=== PATIENT | male | born 1960 | race Caucasian/White ===

== ENCOUNTER 2018-09-17 18:21 | Emergency (ER) | payer BC, SELFPAY ==
[2018-09-17 18:28] VITALS: BP 178/96; PULSE 109; RESP 15; TEMP 37.1; O2SAT 96; BMI 32.7
--- NOTE | 2018-09-17 18:30 | ED.NAVMDI ---
HPI - Nausea/Vomiting/Diarrhea General Chief complaint: Nausea/Vomiting/Diarrhea Stated complaint: VOMITTING BLOOD Time Seen by Provider: 09/17/18 18:26 Source: patient Mode of arrival: ambulatory Limitations: no limitations History of Present Illness HPI Narrative: Patient is a 58-year-old male here for evaluation of nausea and vomiting. States that he has vomited every hour for the past 20 hr. No diarrhea. Some chills but no defined fevers. Has had some recent travel but no antibiotic use. Does have some epigastric abdominal pain. He states that recently during his vomiting episodes he has seen some blood streaked areas. No shortness of breath. Has not tried anything for prior to arrival. Related Data Previous Rx's Medication Instructions Recorded ondansetron 4 mg PO Q6-8H PRN #14 tab 09/17/18 Allergies Allergy/AdvReac Type Severity Reaction Status Date / Time No Known Drug Allergies Allergy Verified 09/17/18 18:28 Review of Systems Constitutional Reports chills and Denies fever(s) Cardiovascular Denies chest pain and Denies dyspnea Respiratory Denies cough and Denies dyspnea Gastrointestinal Gastrointestinal: Reports abdominal pain, Denies change in bowel habits, Denies change in stool character, Reports dyspepsia, Denies diarrhea, Reports nausea and Reports vomiting Genitourinary Denies dysuria Musculoskeletal Reports myalgias and Denies arthralgias Integumentary/Breasts Denies rash Hematologic/Lymphatic Denies easy bleeding and Denies easy bruising PFSH Medical History Hypertension (Acute) Surgical History No pertinent past surgical history (Acute) Social History Smoking Status: Never smoker Exam Initial Vital Signs Initial Vital Signs: Vital Signs Temperature 98.7 F 09/17/18 18:28 Pulse Rate 109 H 09/17/18 18:28 Respiratory Rate 15 09/17/18 18:28 Blood Pressure 178/96 H 09/17/18 18:28 Pulse Oximetry 96 09/17/18 18:28 Const General: cooperative, comfortable, well developed, well groomed and No acute distress Orientation: alert, awake and oriented x3 HENMT Head: normal to inspection and normocephalic Resp Effort & Inspection: normal respiratory effort Auscultation: clear to auscultation bilaterally Cardio Rate: tachycardic Rhythm: regular rhythm Pulses: radial pulses present GI Inspection: non-distended Palpation: soft, No firm and No tender Skin Lesions: no lesions Rashes: no rashes Neuro General: alert, awake and oriented x3 Extrem General: normal to inspection and capillary refill normal Psych Appearance: grossly normal and well kempt Course Orders Ordered: ED Orders 09/17/18 18:45 Complete Blood Count AUTO DIFF Stat Comprehensive Metabolic Panel Stat Lipase Stat Partial Thromboplastin Time Stat Prothrombin Time INR Stat Type and Screen Stat 09/17/18 18:51 XR chest 1V Stat Discontinued Medications Acetaminophen (Tylenol) 650 mg PO NOW ONE Stop: 09/17/18 20:16 Last Admin: 09/17/18 21:22 Dose: 650 mg Al Hydrox/Mg Hydrox/Simethicone 20 ml/ Lidocaine HCl 15 ml 0 ml PO NOW ONE Stop: 09/17/18 20:35 Last Admin: 09/17/18 20:41 Dose: 35 ml Pantoprazole Sodium 80 mg/ (Sodium Chloride) 100 mls @ 10 mls/hr IV NOW ONE Stop: 09/18/18 04:47 Last Infusion: 09/17/18 20:32 Dose: 0 mls/hr Admin: 09/17/18 19:10 Dose: 10 mls/hr Sodium Chloride (Normal Saline 0.9%) 1,000 mls @ 1,000 mls/hr IV BOLUS ONE Stop: 09/17/18 19:47 Last Infusion: 09/17/18 20:32 Dose: 0 mls/hr Admin: 09/17/18 19:03 Dose: 1,000 mls/hr Ondansetron HCl (Zofran) 4 mg IV NOW ONE Stop: 09/17/18 18:49 Last Admin: 09/17/18 19:04 Dose: 4 mg Ondansetron HCl (Zofran Odt Prepack) 1 bottle MISC SEEINSTR ONE Stop: 09/17/18 21:42 Last Admin: 09/17/18 21:44 Dose: 1 bottle Vital Signs - 8 hr 09/17/18 18:28 09/17/18 20:12 09/17/18 21:05 Temperature 98.7 F Pulse Rate 109 H 84 90 Respiratory Rate 15 16 Blood Pressure 178/96 H Blood Pressure [Left Arm] 177/92 H 160/85 H Pulse Oximetry 96 92 95 09/17/18 21:15 09/17/18 21:42 Temperature Pulse Rate 91 H 84 Respiratory Rate 15 16 Blood Pressure Blood Pressure [Left Arm] 160/85 H 149/80 H Pulse Oximetry 96 96 MDM - Nausea/Vomiting/Diarrhea Lab Data Attestation: I reviewed the patient's lab results. Result diagrams: 09/17/18 18:45 09/17/18 18:45 Lab Results 09/17/18 09/17/18 09/17/18 Range/Units 18:45 18:45 18:45 WBC 12.3 H (4.5-11.0) X10^3/uL RBC 5.13 (4.5-5.9) X10^6/uL Hgb 16.7 (13.5-17.5) g/dL Hct 48.3 (41-53) % MCV 94.1 (80-100) fL MCH 32.5 (26-34) PG MCHC 34.5 (30-36) % RDW 12.7 (11.6-14.8) % Plt Count 234 (150-400) X10^3/uL Neut % (Auto) 93.0 H (50-75) % Lymph % (Auto) 3.6 L (25-40) % [place] % (Auto) 3.2 (3-14) % Eos % (Auto) 0.0 L (2-4) % Baso % (Auto) 0.2 (0-2) % Neut # (Auto) 81534 H (0671-7874) /uL PT (10.1-12.7) SECONDS INR (0.9-1.3) APTT 32 (26.4-36.2) SECONDS Sodium 144 (137-145) mmol/L Potassium 3.6 (3.4-5.1) mmol/L Chloride 101 (98-107) mmol/L Carbon Dioxide 26 (22-32) mmol/L BUN 18 (9-20) mg/dL Creatinine 0.80 (0.66-1.25) mg/dL Estimated GFR > 60.0 (>60) mL/min BUN/Creatinine Ratio 22.5 H (6-22) Glucose 162 H (70-100) mg/dL Calcium 9.7 (8.4-10.2) mg/dL Total Bilirubin 0.6 (0.2-1.3) mg/dL AST 28 (17-59) IU/L ALT 54 (21-72) IU/L Alkaline Phosphatase 70 (38-126) U/L Total Protein 7.9 (6.3-8.2) g/dL Albumin 4.9 (3.5-5.0) g/dL Globulin 3.0 (1.7-4.1) g/dL Albumin/Globulin Ratio 1.6 (1.0-2.8) Lipase 20 L (23-300) U/L Blood Type Antibody Screen 09/17/18 09/17/18 Range/Units 18:45 18:45 WBC (4.5-11.0) X10^3/uL RBC (4.5-5.9) X10^6/uL Hgb (13.5-17.5) g/dL Hct (41-53) % MCV (80-100) fL MCH (26-34) PG MCHC (30-36) % RDW (11.6-14.8) % Plt Count (150-400) X10^3/uL Neut % (Auto) (50-75) % Lymph % (Auto) (25-40) % [place] % (Auto) (3-14) % Eos % (Auto) (2-4) % Baso % (Auto) (0-2) % Neut # (Auto) (7066-6255) /uL PT 12.2 (10.1-12.7) SECONDS INR 1.1 (0.9-1.3) APTT (26.4-36.2) SECONDS Sodium (137-145) mmol/L Potassium (3.4-5.1) mmol/L Chloride (98-107) mmol/L Carbon Dioxide (22-32) mmol/L BUN (9-20) mg/dL Creatinine (0.66-1.25) mg/dL Estimated GFR (>60) mL/min BUN/Creatinine Ratio (6-22) Glucose (70-100) mg/dL Calcium (8.4-10.2) mg/dL Total Bilirubin (0.2-1.3) mg/dL AST (17-59) IU/L ALT (21-72) IU/L Alkaline Phosphatase (38-126) U/L Total Protein (6.3-8.2) g/dL Albumin (3.5-5.0) g/dL Globulin (1.7-4.1) g/dL Albumin/Globulin Ratio (1.0-2.8) Lipase (23-300) U/L Blood Type O Positive Antibody Screen Negative Imaging Data Chest x-ray: Radiologist's impression: [address] [address] XRay Report Signed Patient: LISA MCKEE MMR#: [id number] : 9Acct:[id number] Age/Sex: 58 / MDate of Service: 09/17/18 Loc: ED Accession Number: [id number] Procedure: XR chest 1V Ordering Provider: Bj Duff D.O. PROCEDURE: XR CHEST 1V INDICATIONS: vomiting blood TECHNIQUE: One view of the chest was acquired. COMPARISON: None. FINDINGS: Surgical changes and devices: None. Lungs and pleura: No pleural effusions or pneumothorax. Lungs are clear. Mediastinum: Mediastinal contours appear normal. Heart size is normal. Bones and chest wall: No suspicious bony lesions. Overlying soft tissues appear unremarkable. IMPRESSION: No acute cardiopulmonary disease. Dictated by: Minal Johnson M.D. on 09/17/2018 at 19:29 MDM Narrative Medical decision making narrative: Patient reported improvement after fluids here in the emergency department. Patient has a benign abdominal exam. His chest x-ray shows no signs of perforation or free air under the diaphragm. Patient is not anemic. I do suspect that his blood-streaked vomit secondary to Elaine-Galo tears. He was given Protonix here in the ER. First attempt at oral fluid challenge unsuccessful. He was given a GI cocktail which he states improved his symptoms tremendously. He was able to tolerate oral intake afterwards. Was given a Tylenol for headache. Will hold on further workup for now. Will send home with a prescription for Zofran. We also discussed the importance of taking a reflux medications such as Zantac. He was given return precautions. He expressed understanding and agreement with plan. Discharge Plan Departure Patient Disposition: Home Clinical Impression: Vomiting Discharge Date/Time: 09/17/18 21:47 Interventions: ED Discharge Assessment Last Done: 09/17/18 21:46 Instructions: DI for Vomiting -- Adult Activity Restrictions/Additional Instructions: Recommend that you increase her fluid intake. Take the nausea medication as directed. I do recommend that you purchase a medications such as Zantac which you can buy [id number] and start taking it on a daily basis for the next 7-14 days. Contact your primary care doctor for follow-up. Return to the emergency department for any new or worsening symptoms Prescriptions: New ondansetron 4 mg tablet,disintegrating 4 mg PO Q6-8H PRN (Reason: nausea and vomiting) Qty: 14 RF: 0
--- NOTE | 2018-09-17 18:51 | DI.RAD.S_ITS ---
PROCEDURE: XR CHEST 1V INDICATIONS: vomiting blood TECHNIQUE: One view of the chest was acquired. COMPARISON: None. FINDINGS: Surgical changes and devices: None. Lungs and pleura: No pleural effusions or pneumothorax. Lungs are clear. Mediastinum: Mediastinal contours appear normal. Heart size is normal. Bones and chest wall: No suspicious bony lesions. Overlying soft tissues appear unremarkable. IMPRESSION: No acute cardiopulmonary disease. Dictated by: Minal Johnson M.D. on 09/17/2018 at 19:29 Approved by: Minal Johnson M.D. on 09/17/2018 at 19:29
[2018-09-17 19:01] LABS: Add Manual Diff / Slide Review NO; Basophils Percent Auto 0.2 % (0-2); Hematocrit 48.3 % (41-53); Hemoglobin 16.7 g/dL (13.5-17.5); Lymphocytes Percent Auto 3.6 % (25-40); Mean Corpuscular HGB Conc 34.5 % (30-36); Mean Corpuscular Hemoglobin 32.5 PG (26-34); Mean Corpuscular Volume 94.1 fL (80-100); Monocytes Percent Auto 3.2 % (3-14); Neutrophils Absolute Auto 11400 /uL (1500-7000); Platelet Count 234 X10^3/uL (150-400); Red Blood Cell Count 5.13 X10^6/uL (4.5-5.9); Red Cell Distribution Width 12.7 % (11.6-14.8); White Blood Cell Count 12.3 X10^3/uL (4.5-11.0)
[2018-09-17] MEDS: SODIUM CHLORIDE 0.9% 1,000 ML 1000 ML IV (19:03)
[2018-09-17] MEDS: ONDANSETRON 4 MG/2 ML INJ IV (19:04)
[2018-09-17 19:07] LABS: PTT Partial Thromboplastin Tim 32 SECONDS (26.4-36.2)
[2018-09-17] MEDS: PANTOPRAZOLE 80 MG in SODIUM CHLORIDE 0.9% 100 ML 10 ML IV (19:10)
[2018-09-17 19:12] LABS: INR 1.1 (0.9-1.3); Prothrombin Time 12.2 SECONDS (10.1-12.7)
[2018-09-17 19:13] LABS: Alanine Aminotransferase 54 IU/L (21-72); Albumin 4.9 g/dL (3.5-5.0); Albumin Globulin Ratio 1.6 (1.0-2.8); Alkaline Phosphatase 70 U/L (38-126); Aspartate Aminotransferase 28 IU/L (17-59); BUN Creatinine Ratio 22.5 (6-22); Bilirubin Total 0.6 mg/dL (0.2-1.3); Blood Urea Nitrogen 18 mg/dL (9-20); Calcium 9.7 mg/dL (8.4-10.2); Carbon Dioxide 26 mmol/L (22-32); Chloride 101 mmol/L (98-107); Estimated Glomerular Filt Rate > 60.0 mL/min (>60); Glucose 162 mg/dL (70-100); HEMOLYSIS < 15 (0-50); Lipase 20 U/L (23-300); Potassium 3.6 mmol/L (3.4-5.1); Sodium 144 mmol/L (137-145); Total Protein 7.9 g/dL (6.3-8.2)
[2018-09-17 20:12] VITALS: BP 177/92; PULSE 84; RESP 16; O2SAT 92
[2018-09-17] MEDS: MAG HYDROX/ALUMINUM/SIMETH SUS 20 ML, LIDOCAINE VISCOUS 2% 15 ML PO (20:41)
[2018-09-17 21:05] VITALS: BP 160/85; PULSE 90; O2SAT 95
[2018-09-17 21:15] VITALS: BP 160/85; PULSE 91; RESP 15; O2SAT 96
[2018-09-17] MEDS: ACETAMINOPHEN 325 MG TABLET 650 MG PO (21:22)
[2018-09-17 21:42] VITALS: BP 149/80; PULSE 84; RESP 16; O2SAT 96
[2018-09-17] MEDS: ONDANSETRON 4 MG ODT PREPACK 1 BOTTLE MISC (21:44)
== END 2018-09-17 21:47 | disposition home or self-care (01) ==
PROVIDERS: Emergency Provider Emergency Medicine; PCP Internal Medicine
DX: R11.10 Vomiting, unspecified (principal)
CPT/HCPCS: 36591; 71045; 80053; 83690; 85025; 85610; 85730; 86850; 86900; 86901; 96365; 96366; 96375; 99283; 99284; C9113; J2405

== ENCOUNTER → 2019-10-22 14:18 | Outpatient (CLI) | payer BC, SELFPAY ==
[2019-10-22 15:01] LABS: Alanine Aminotransferase 63 IU/L (<50); Albumin 4.4 g/dL (3.5-5.0); Albumin Globulin Ratio 1.8 (1.0-2.8); Alkaline Phosphatase 69 U/L (38-126); Aspartate Aminotransferase 35 IU/L (17-59); BUN Creatinine Ratio 24.4 (6-22); Bilirubin Total 0.4 mg/dL (0.2-1.3); Blood Urea Nitrogen 22 mg/dL (9-20); Calcium 10.3 mg/dL (8.4-10.2); Carbon Dioxide 27 mmol/L (22-32); Chloride 107 mmol/L (98-107); Cholesterol 232 mg/dL (140-199); Estimated Glomerular Filt Rate > 60.0 mL/min (>60); Globulin 2.5 g/dL (1.7-4.1); Glucose 90 mg/dL (80-110); HDL Cholesterol 45 mg/dL (40-60); HEMOLYSIS < 15 (0-50); LDL Cholesterol Calculated 166 mg/dL (<100); Potassium 4.3 mmol/L (3.4-5.1); Sodium 141 mmol/L (137-145); Total Protein 6.9 g/dL (6.3-8.2); Triglycerides 103 mg/dL (35-150)
[2019-10-26 14:29] LABS: PSA, Total 0.4 ng/mL (< 4.1)
== END ==
PROVIDERS: PCP Internal Medicine; Visit Provider Internal Medicine
DX: N40.1 Benign prostatic hyperplasia with lower urinary tract symptoms (principal); E78.2 Mixed hyperlipidemia; I10 Essential (primary) hypertension
CPT/HCPCS: 36415; 80053; 80061; 84153; 84154

== ENCOUNTER → 2019-10-29 08:00 | Outpatient (CLI) | payer BC, SELFPAY ==
--- NOTE | 2019-10-29 09:33 | P.PCN_ITS ---
Cardiac Stress Test Report Referral & Results Date Patient Seen: 10/29/19 Time Patient Seen: 09:33 Requesting provider: Sonu Santos Indication: Abnormal ECG Rest ECG: Normal sinus rhythm at 78 with insignificant Q waves in lead III. Procedure Note: Max effort Jay protocol treadmill exercise tolerance test with good tolerance and total exercise time of 11:41 and Mets of 12.8. Patient denied any cardiac ischemic symptoms. Stress ECG sinus tach to 155 bpm (97% of predicted max HR) without any significant ST segment depressions or elevations. normal HR response; hypertensive BP response; no arrhythmias; no claudication. [employer] to review test. Alberto Maza PA-C Please note: Actual ECG tracings can be found in the PACS system.
== END ==
PROVIDERS: PCP Internal Medicine; Visit Provider Internal Medicine
DX: R94.31 Abnormal electrocardiogram [ECG] [EKG] (principal)
CPT/HCPCS: 93017

== ENCOUNTER 2020-09-13 19:34 | Emergency (ER) | payer BC, SELFPAY ==
[2020-09-13 19:38] VITALS: BP 140/90; PULSE 91; RESP 18; TEMP 36.8; O2SAT 96
[2020-09-13] MEDS: TET,DIPH,PERTUSS(ACELL),VAC/PF 0.5 ML SYRINGE IM (19:43)
[2020-09-13] MEDS: LIDO 1%/SOD BICARB 8.4% (10ML) 10 ML SYRINGE INJ (19:45)
[2020-09-13 21:01] VITALS: BP 145/90; PULSE 79; RESP 20; O2SAT 97
--- NOTE | 2020-09-14 01:38 | ED_ITS ---
HPI - Wound/Laceration General Chief Complaint: Wound/Laceration Stated Complaint: wound pinky finger left hand Time Seen by Provider: 09/13/20 19:35 Source: patient Mode of arrival: Ambulatory Limitations: no limitations History of Present Illness HPI narrative: 60M nonsmoker with history of HTN presents with hsi for evaluation of an accidental laceration to the volar surface of his left pinky. He has pain and bleeding, but denies numbness, tingling, or weakness. He was shucking oysters and accidentally cut himself. His tetanus will need to be updated. He is otherwise well and free of complaint Onset (ago): minute(s) Location: other Body four view annotation: 1. Place: home Patient tetanus UTD: No Context: accidental Associated symptoms: pain Treatments prior to arrival: bandage Related Data Previous Rx's Medication Instructions Recorded amlodipine 10 mg tablet 10 mg PO DAILY #90 tab 08/02/20 cephalexin [Keflex] 500 mg PO QID 7 Days #28 cap 09/13/20 Allergies Allergy/AdvReac Type Severity Reaction Status Date / Time No Known Drug Allergies Allergy Verified 08/02/20 13:26 Review of Systems Constitutional Constitutional: Denies chills, Denies fatigue, Denies fever(s), Denies frequent falls, Denies lethargy and Denies weakness Eyes Eyes: Denies change in vision, Denies eye discharge, Denies irritation and Denies loss of vision ENT Ears, Nose, Mouth, and Throat: Denies change in voice, Denies dizziness, Denies neck pain, Denies sore throat and Denies throat swelling Cardiovascular Cardiovascular: Denies chest pain, Denies irregular heart rhythm, Denies lightheadedness, Denies palpitations, Denies dyspnea, Denies dyspnea on exertion and Denies orthopnea Respiratory Respiratory: Denies cough, Denies dyspnea, Denies dyspnea on exertion and Denies wheezing Gastrointestinal Gastrointestinal: Denies abdominal pain, Denies change in bowel habits, Denies diarrhea, Denies nausea and Denies vomiting Musculoskeletal Musculoskeletal: Denies neck pain and Denies numbness Integumentary/Breasts Skin/Breast: Denies pruritus, Denies erythema, Denies rash and Reports wounds Neurologic Neurologic: Denies behavioral changes, Denies confusion, Denies dizziness, Denies frequent falls, Denies loss of vision, Denies numbness and Denies weakness Psychiatric Psychiatric: Denies anxiety, Denies behavioral changes, Denies confusion, Denies depression, Denies homicidal ideation and Denies suicidal ideation Endocrine Endocrine: Denies fatigue, Denies flushing and Denies palpitations Hematologic/Lymphatic Hematologic/Lymphatic: Denies easy bruising Allergic/Immunologic Allergic/Immunologic: Denies urticaria, Denies throat swelling and Denies wheezing Patient History Medical History GERD (gastroesophageal reflux disease) Hyperlipemia Hypertension Wears glasses Surgical History Anesthesia History of hernia surgery (~2003) No pertinent past surgical history Family History Father Alzheimer disease History of heart disease Hyperlipidemia Mental health problem COVID-19 Mother Stroke Social History Smoking Status: Never smoker Smoking Status: Never smoker alcohol intake frequency: 3 or more drinks per day Substance Use Type: does not use Exam Narrative Exam Narrative: GEN: AOx3 and in mild distress EYES: Pupils are equal, round, and reactive to light and accommodation. Extraoccular muscles are intact bilaterally. There is no subconjunctival hemorrhage or exudate. CHEST: Lungs are clear to auscultation bilaterally and free of wheezes, rales, or rhonchi. Heart rate is regular rhythm, there are no murmurs, clicks, rubs, or gallops. There is no chest wall tenderness. ABD: Abdomen is soft and nontender. There is no guarding or rebound. Bowel sounds are normal in all 4 quadrants. There is no mass or organomegaly. EXT: Full painless ROM of all extremities with no loss of sensation or strength. SKIN: 2.5 cm deep laceration on volar surface of left 5th finger. There is active, pulsatile bleeding. He has full range of motion and sensation. A Cristina drain is applied very briefly for use as a tourniquet and flexor tendon glide is visualized in a bloodless field. No foreign body noted Warm, pink, and dry. No erythema or rash Initial Vital Signs Initial Vital Signs: Vital Signs Temperature 98.2 F 09/13/20 19:38 Pulse Rate 91 H 09/13/20 19:38 Respiratory Rate 18 09/13/20 19:38 Blood Pressure 140/90 09/13/20 19:38 Pulse Oximetry 96 09/13/20 19:38 Procedures Laceration Repair Laceration 1: Site: hand Side (If applicable): left Size (cm): 2.5 Description: linear Depth: involves muscle layer Local Anesthetic: lidocaine 1% and bupivacaine 0.5% Amount of anesthesia used (mL): 4 Pre-repair: wound explored and irrigated extensively Skin layer closed with: nylon Size (cm): 4-0 Number of sutures: 5 Course Orders Ordered: Discontinued Medications Diphtheria/Tetanus/Acell Pertussis (Tet,Diph,Pertuss(Acell),Vac/Pf 0.5 Ml Syri nge) 0.5 ml IM .ONCE ONE Stop: 09/13/20 19:40 Last Admin: 09/13/20 19:43 Dose: 0.5 ml Documented by: SHADI Lidocaine/Sodium Bicarbonate (Lido 1%/Sod Bicarb 8.4% (10ml) 10 Ml Syringe) 10 ml INJ NOW ONE Stop: 09/13/20 19:40 Last Admin: 09/13/20 19:45 Dose: 1 ml Documented by: SHADI Vital Signs Vital signs: Vital Signs - 8 hr 09/13/20 19:38 09/13/20 21:01 Temperature 98.2 F Pulse Rate 91 H 79 Respiratory Rate 18 20 Blood Pressure 140/90 145/90 H Pulse Oximetry 96 97 Discharge Plan Departure Patient Disposition: Home Clinical Impression: Laceration Instructions: DI for Laceration Repair Activity Restrictions/Additional Instructions: *You have been diagnosed with [lip laceration are of left fifth finger] *What to do: *Take medications as directed * Please keep the wound clean and dry to the best of your ability. Please monitor for signs of infection such as redness to the skin or increasing pain. Have the sutures removed by your doctor in about 7 days. If you are unable to get into your doctor, we would be happy to remove the sutures in that same timeframe. *Return to ER if you should have any new, worsening or concerning symptoms, such as [increasing pain, redness, swelling, drainage or other bothersome symptoms] Prescriptions: New cephalexin [Keflex] 500 mg capsule 500 mg PO QID 7 Days Qty: 28 RF: 0 No Action amlodipine 10 mg tablet 10 mg PO DAILY Qty: 90 RF: 3 Referrals: Ori Hicks MD [Primary Care Provider] -
== END 2020-09-13 21:00 | disposition home or self-care (01) ==
PROVIDERS: Emergency Provider Emergency Medicine; PCP Family Medicine
DX: S61.217A Laceration without foreign body of left little finger without damage to nail, initial encounter (principal); W26.9XXA Contact with unspecified sharp object(s), initial encounter; I10 Essential (primary) hypertension; E78.5 Hyperlipidemia, unspecified; K21.9 Gastro-esophageal reflux disease without esophagitis; Z23 Encounter for immunization
CPT/HCPCS: 12001; 90471; 99283; 90715

== ENCOUNTER → 2021-01-10 09:04 | Outpatient (CLI) | payer BC, SELFPAY ==
[2021-01-10] MEDS: COVID-19 VACC #1, MRNA(MOD) 100 MCG/0.5 ML VIAL IM (09:14)
== END ==
PROVIDERS: PCP Family Medicine; Visit Provider Internal Medicine
DX: Z23 Encounter for immunization (principal)
CPT/HCPCS: 0011A; 91301

== ENCOUNTER → 2021-02-08 15:35 | Outpatient (CLI) | payer BC, SELFPAY ==
[2021-02-08] MEDS: COVID-19 VACC #2, MRNA(MOD) 100 MCG/0.5 ML VIAL IM (15:51)
== END ==
PROVIDERS: PCP Family Medicine; Visit Provider Internal Medicine
DX: Z23 Encounter for immunization (principal)
CPT/HCPCS: 0012A; 91301

== ENCOUNTER → 2022-01-01 08:42 | Outpatient (CLI) | payer BC, SELFPAY ==
[2022-01-01 10:02] LABS: Hemoglobin A1C% w Est Avg Glu 5.4 % (4.0-6.0)
[2022-01-01 10:08] LABS: Creatinine Urine Random 239.1 mg/dL
[2022-01-01 10:12] LABS: Alanine Aminotransferase 40 IU/L (<50); Albumin 4.4 g/dL (3.5-5.0); Albumin Globulin Ratio 1.8 (1.0-2.8); Alkaline Phosphatase 67 U/L (38-126); Aspartate Aminotransferase 27 IU/L (17-59); BUN Creatinine Ratio 18.7 (6-22); Bilirubin Total 0.6 mg/dL (0.2-1.3); Blood Urea Nitrogen 17 mg/dL (9-20); Calcium 9.6 mg/dL (8.4-10.2); Carbon Dioxide 25 mmol/L (22-32); Chloride 105 mmol/L (98-107); Cholesterol 253 mg/dL (140-199); Estimated Glomerular Filt Rate > 60.0 mL/min (>60); Globulin 2.4 g/dL (1.7-4.1); Glucose 110 mg/dL (80-110); HDL Cholesterol 60 mg/dL (40-60); HEMOLYSIS < 15 (0-50); LDL Cholesterol Calculated 157 mg/dL (<100); Potassium 4.4 mmol/L (3.4-5.1); Sodium 139 mmol/L (137-145); Total Protein 6.8 g/dL (6.3-8.2); Triglycerides 182 mg/dL (35-150)
[2022-01-01 10:13] LABS: Microalbumi Creatinin Ratio Ur 8.7 ug/mg CR (<30); Microalbumin Urine Random 2.1 mg/dL (0-1.6)
== END ==
PROVIDERS: PCP Family Medicine; Referring Provider Family Medicine; Visit Provider Family Medicine
DX: E78.5 Hyperlipidemia, unspecified (principal); I10 Essential (primary) hypertension
CPT/HCPCS: 36415; 80053; 80061; 82043; 82570; 83036

== ENCOUNTER 2022-09-30 22:30 | Emergency (ER) | payer BC, SELFPAY ==
[2022-09-30 22:38] VITALS: BP 221/136; PULSE 100; RESP 18; TEMP 36.3; O2SAT 97; BMI 33.0
--- NOTE | 2022-09-30 22:42 | DI.RAD.S_ITS ---
PROCEDURE: XR CHEST 1V INDICATIONS: chest pain TECHNIQUE: One view of the chest was acquired. COMPARISON: [facility], CR, XR CHEST 1V, 09/17/2018, 18:54. FINDINGS: Surgical changes and devices: None. Lungs and pleura: Lungs are clear. No pleural effusions or pneumothorax. Mediastinum: Mediastinal contours appear normal. Heart size is mildly enlarged. Bones and chest wall: No suspicious bony lesions. Overlying soft tissues appear unremarkable. IMPRESSION: No acute pulmonary process. Dictated by: Mitzi Smiley M.D. on 09/30/2022 at 23:51 Approved by: Mitzi Smiley M.D. on 09/30/2022 at 23:51
[2022-09-30 23:00] VITALS: PULSE 94; RESP 21; O2SAT 96
[2022-09-30 23:01] VITALS: BP 154/84; PULSE 95; RESP 19; O2SAT 96
[2022-09-30 23:10] LABS: Prothrombin Time 11.7 SECONDS (10.1-12.7)
[2022-09-30 23:13] LABS: Add Manual Diff / Slide Review NO; Basophils Absolute Auto 0 /uL (0-100); Basophils Percent Auto 0.5 % (0-2); Eosinophils Absolute Auto 100 /uL (0-450); Eosinophils Percent Auto 1.9 % (2-4); Hematocrit 41.9 % (41-53); Hemoglobin 14.3 g/dL (13.5-17.5); Lymphocytes Absolute Auto 1800 /uL (1100-4500); Lymphocytes Percent Auto 27.3 % (25-40); Mean Corpuscular HGB Conc 34.1 % (30-36); Mean Corpuscular Hemoglobin 32.6 PG (26-34); Mean Corpuscular Volume 95.6 fL (80-100); Monocytes Absolute Auto 800 /uL (0-900); Monocytes Percent Auto 12.5 % (3-14); Neutrophils Absolute Auto 3800 /uL (1500-7000); Neutrophils Percent Auto 57.8 % (50-75); PTT Partial Thromboplastin Tim 35 SECONDS (26-36); Platelet Count 229 X10^3/uL (150-400); Red Blood Cell Count 4.38 X10^6/uL (4.5-5.9); Red Cell Distribution Width 12.8 % (11.6-14.8); White Blood Cell Count 6.6 X10^3/uL (4.5-11.0)
[2022-09-30 23:14] LABS: HEMOLYSIS < 15 (0-50)
[2022-09-30 23:20] LABS: Alanine Aminotransferase 52 IU/L (<50); Albumin 4.3 g/dL (3.5-5.0); Albumin Globulin Ratio 1.4 (1.0-2.8); Alkaline Phosphatase 78 U/L (38-126); Aspartate Aminotransferase 32 IU/L (17-59); BUN Creatinine Ratio 34.8 (6-22); Bilirubin Total 0.5 mg/dL (0.2-1.3); Blood Urea Nitrogen 32 mg/dL (9-20); Calcium 9.2 mg/dL (8.4-10.2); Carbon Dioxide 24 mmol/L (22-32); Chloride 104 mmol/L (98-107); Creatine Kinase 124 U/L (55-170); Estimated Glomerular Filt Rate > 60 mL/min (>60); Glucose 114 mg/dL (80-110); Lipase 39 U/L (23-300); Magnesium 2.2 mg/dL (1.6-2.3); Sodium 139 mmol/L (137-145); Total Protein 7.3 g/dL (6.3-8.2)
[2022-09-30 23:30] VITALS: BP 150/86; PULSE 87; RESP 16; O2SAT 95
[2022-09-30 23:33] LABS: Troponin I < 0.012 ng/mL (0.01-0.034)
[2022-09-30 23:35] LABS: CKMB % Relative Index 0.8 % (1.5-5.0); Creatine Kinase MB 0.93 ng/mL (<2.37)
--- NOTE | 2022-09-30 23:42 | ED.CHESTPAIN ---
HPI - Chest Pain General Chief Complaint: Chest Pain Stated Complaint: High BP 204/120, Chest pain Time Seen by Provider: 09/30/22 22:42 Source: patient Mode of arrival: Ambulatory History of Present Illness HPI narrative: 62-year-old male nonsmoker with history of hypertension presents with his in the chief complaint of relatively vague in brief episodes of left-sided chest pain over the course of the past few days. He states that they are largely sharp and stabbing and last a minute or 2 and are absent of any obvious provocation, palliation or radiation. He denies associated symptoms such as dizziness, weakness or lightheadedness. He has no shortness of breath or cough. He denies nausea, vomiting or diarrhea and has no urinary complaints. He noticed it initially after shoveling vigorously in his driveway after the snow fell a few days ago but denies any symptoms while shoveling. He just noticed this pain in his left anterior chest. Additionally, he is noticed episodes of his blood pressure being elevated, at times over 200 but states his symptoms do not seem to necessarily correlate with elevated blood pressure. He denies any change in medications or diet. Denies recent trauma or injury, travel, history of clot or pain, swelling or redness in lower extremities Related Data Previous Rx's Medication Instructions Recorded lisinopril 20 mg tablet 20 mg PO DAILY #90 tabs 07/15/22 Allergies Allergy/AdvReac Type Severity Reaction Status Date / Time No Known Drug Allergies Allergy Verified 08/02/20 13:26 Review of Systems Review of Systems Narrative: GENERAL: Denies chills, fatigue, malaise, fever, sweats. HEENT: Denies sinus pain, ear pain, sore throat, difficulty swallowing, dizziness. RESPIRATORY: See HPI CARDIOVASCULAR: See HPI GASTROINTESTINAL: Denies nausea, vomiting, abdominal pain, diarrhea, constipation, melena. : Denies dysuria, frequency, incontinence, hematuria, urinary retention. MUSCULOSKELETAL: denies weakness, joint pain, or bony pain SKIN: Denies rash, skin lesions, or other NEUROLOGIC: Denies weakness, headache, numbness, change in speech, confusion, seizures, incoordination. PSYCHIATRIC: No concerning psychosocial issues. 12 point review of systems is negative except for those stated above Patient History Medical History GERD (gastroesophageal reflux disease) Hyperlipemia Hypertension Wears glasses Surgical History Anesthesia History of hernia surgery (~2003) No pertinent past surgical history Family History Father Alzheimer disease History of heart disease Hyperlipidemia Mental health problem COVID-19 Mother Stroke Social History Smoking Status: Never smoker Smoking Status: Never smoker alcohol intake frequency: 3 or more drinks per day Substance Use Type: does not use Exam Narrative Exam Narrative: GENERAL: [62] year old patient appears stated age. Well-developed patient, in mild distress. HEAD: Atraumatic. Normocephalic. EYES: Pupils equal round and reactive. Extraocular motions intact. No scleral icterus. No injection or drainage. ENT: Nose without bleeding, purulent drainage. Throat without erythema, tonsillar hypertrophy or exudate. Airway patent. NECK: Trachea midline. Non tender CARDIOVASCULAR: Regular rate and rhythm without murmurs, gallops, or rubs. RESPIRATORY: Clear to auscultation. Breath sounds equal bilaterally. No wheezes, rales, or rhonchi. GASTROINTESTINAL: Abdomen soft, non-tender, nondistended. EXTREMITIES: No edema or joint tenderness. BACK: Nontender without deformity or crepitance. No flank tenderness. NEURO: AOx3. SKIN: No rash or erythema of visible areas Initial Vital Signs Initial Vital Signs: Vital Signs Temperature 97.3 F L 09/30/22 22:38 Pulse Rate 100 H 09/30/22 22:38 Respiratory Rate 18 09/30/22 22:38 Blood Pressure 221/136 H 09/30/22 22:38 Pulse Oximetry 97 09/30/22 22:38 Oxygen Delivery Method 09/30/22 22:38 Scores HEART Score Heart Score history: Slightly Suspicious Heart Score EKG: Normal Heart Score Age: 45-64 years old Heart Score risk factors: 1-2 risk factors Heart Score troponin: < or = to normal limit Heart Score Total: 2 Course Orders Ordered: ED Orders 09/30/22 22:42 XR chest 1V Stat EKG-12 Lead Stat 09/30/22 22:55 Complete Blood Count AUTO DIFF Stat Comprehensive Metabolic Panel Stat Lipase Stat Magnesium Stat Partial Thromboplastin Time Stat Prothrombin Time INR Stat Troponin & CK Cardiac Panel Stat 09/30/22 23:40 COVID19 -Nasal RAPID/Pre-Proc Stat 10/01/22 00:49 EKG-12 Lead Stat 10/01/22 00:53 Troponin I Stat Vital Signs Vital signs: Vital Signs - 8 hr 09/30/22 22:38 09/30/22 23:00 09/30/22 23:01 Temperature 97.3 F L Pulse Rate 100 H 94 H 95 H Respiratory Rate 18 21 19 Blood Pressure 221/136 H Pulse Oximetry 97 96 96 Oxygen Delivery Method Room Air 09/30/22 23:01 09/30/22 23:30 09/30/22 23:30 Temperature Pulse Rate 87 Respiratory Rate 16 Blood Pressure 154/84 H 150/86 H Pulse Oximetry 95 Oxygen Delivery Method 09/30/22 23:44 09/30/22 23:44 10/01/22 00:00 Temperature Pulse Rate 88 Respiratory Rate 20 Blood Pressure 156/87 H 157/90 H Pulse Oximetry 96 Oxygen Delivery Method Room Air 10/01/22 00:00 10/01/22 00:30 10/01/22 00:30 Temperature Pulse Rate 85 84 Respiratory Rate 17 17 Blood Pressure 159/90 H Pulse Oximetry 94 96 Oxygen Delivery Method 10/01/22 00:47 10/01/22 00:47 Temperature Pulse Rate 81 Respiratory Rate 21 Blood Pressure 166/100 H Pulse Oximetry 96 Oxygen Delivery Method MDM - Chest Pain Lab Data Result diagrams: 09/30/22 22:55 09/30/22 22:55 Labs: Lab Results 09/30/22 09/30/22 09/30/22 Range/Units 22:55 22:55 22:55 WBC 6.6 (4.5-11.0) X10^3/uL RBC 4.38 L (4.5-5.9) X10^6/uL Hgb 14.3 (13.5-17.5) g/dL Hct 41.9 (41-53) % MCV 95.6 (80-100) fL MCH 32.6 (26-34) PG MCHC 34.1 (30-36) % RDW 12.8 (11.6-14.8) % Plt Count 229 (150-400) X10^3/uL Neut % (Auto) 57.8 (50-75) % Lymph % (Auto) 27.3 (25-40) % Dare % (Auto) 12.5 (3-14) % Eos % (Auto) 1.9 L (2-4) % Baso % (Auto) 0.5 (0-2) % Neut # (Auto) 3800 (8711-2612) /uL Lymph # (Auto) 1800 (2372-6935) /uL Dare # (Auto) 800 (0-900) /uL Eos # (Auto) 100 (0-450) /uL Baso # (Auto) 0 (0-100) /uL ESR (0-15) MM/HR PT 11.7 (10.1-12.7) SECONDS INR 1.0 (0.9-1.3) APTT 35 (26-36) SECONDS D-Dimer (<500) ng/ml Sodium 139 (137-145) mmol/L Potassium 4.0 (3.4-5.1) mmol/L Chloride 104 (98-107) mmol/L Carbon Dioxide 24 (22-32) mmol/L BUN 32 H (9-20) mg/dL Creatinine 0.92 (0.66-1.25) mg/dL Estimated GFR > 60 (>60) mL/min BUN/Creatinine Ratio 34.8 H (6-22) Glucose 114 H (80-110) mg/dL Calcium 9.2 (8.4-10.2) mg/dL Magnesium 2.2 (1.6-2.3) mg/dL Total Bilirubin 0.5 (0.2-1.3) mg/dL AST 32 (17-59) IU/L ALT 52 H (<50) IU/L Alkaline Phosphatase 78 (38-126) U/L Total Creatine Kinase 124 (55-170) U/L CK-MB (CK-2) 0.93 (<2.37) ng/mL CK-MB (CK-2) Rel Index 0.8 L (1.5-5.0) % Troponin I < 0.012 (0.01-0.034) ng/mL C-Reactive Protein (<1.0) mg/dL Total Protein 7.3 (6.3-8.2) g/dL Albumin 4.3 (3.5-5.0) g/dL Globulin 3.0 (1.7-4.1) g/dL Albumin/Globulin Ratio 1.4 (1.0-2.8) Lipase 39 (23-300) U/L 09/30/22 09/30/22 09/30/22 Range/Units 22:55 22:55 22:55 WBC (4.5-11.0) X10^3/uL RBC (4.5-5.9) X10^6/uL Hgb (13.5-17.5) g/dL Hct (41-53) % MCV (80-100) fL MCH (26-34) PG MCHC (30-36) % RDW (11.6-14.8) % Plt Count (150-400) X10^3/uL Neut % (Auto) (50-75) % Lymph % (Auto) (25-40) % Dare % (Auto) (3-14) % Eos % (Auto) (2-4) % Baso % (Auto) (0-2) % Neut # (Auto) (9338-6413) /uL Lymph # (Auto) (2490-5656) /uL Dare # (Auto) (0-900) /uL Eos # (Auto) (0-450) /uL Baso # (Auto) (0-100) /uL ESR 4 (0-15) MM/HR PT (10.1-12.7) SECONDS INR (0.9-1.3) APTT (26-36) SECONDS D-Dimer < 215 (<500) ng/ml Sodium (137-145) mmol/L Potassium (3.4-5.1) mmol/L Chloride (98-107) mmol/L Carbon Dioxide (22-32) mmol/L BUN (9-20) mg/dL Creatinine (0.66-1.25) mg/dL Estimated GFR (>60) mL/min BUN/Creatinine Ratio (6-22) Glucose (80-110) mg/dL Calcium (8.4-10.2) mg/dL Magnesium (1.6-2.3) mg/dL Total Bilirubin (0.2-1.3) mg/dL AST (17-59) IU/L ALT (<50) IU/L Alkaline Phosphatase (38-126) U/L Total Creatine Kinase (55-170) U/L CK-MB (CK-2) (<2.37) ng/mL CK-MB (CK-2) Rel Index (1.5-5.0) % Troponin I (0.01-0.034) ng/mL C-Reactive Protein < 0.5 (<1.0) mg/dL Total Protein (6.3-8.2) g/dL Albumin (3.5-5.0) g/dL Globulin (1.7-4.1) g/dL Albumin/Globulin Ratio (1.0-2.8) Lipase (23-300) U/L 10/01/22 Range/Units 00:53 WBC (4.5-11.0) X10^3/uL RBC (4.5-5.9) X10^6/uL Hgb (13.5-17.5) g/dL Hct (41-53) % MCV (80-100) fL MCH (26-34) PG MCHC (30-36) % RDW (11.6-14.8) % Plt Count (150-400) X10^3/uL Neut % (Auto) (50-75) % Lymph % (Auto) (25-40) % Dare % (Auto) (3-14) % Eos % (Auto) (2-4) % Baso % (Auto) (0-2) % Neut # (Auto) (1362-7176) /uL Lymph # (Auto) (3149-7954) /uL Dare # (Auto) (0-900) /uL Eos # (Auto) (0-450) /uL Baso # (Auto) (0-100) /uL ESR (0-15) MM/HR PT (10.1-12.7) SECONDS INR (0.9-1.3) APTT (26-36) SECONDS D-Dimer (<500) ng/ml Sodium (137-145) mmol/L Potassium (3.4-5.1) mmol/L Chloride (98-107) mmol/L Carbon Dioxide (22-32) mmol/L BUN (9-20) mg/dL Creatinine (0.66-1.25) mg/dL Estimated GFR (>60) mL/min BUN/Creatinine Ratio (6-22) Glucose (80-110) mg/dL Calcium (8.4-10.2) mg/dL Magnesium (1.6-2.3) mg/dL Total Bilirubin (0.2-1.3) mg/dL AST (17-59) IU/L ALT (<50) IU/L Alkaline Phosphatase (38-126) U/L Total Creatine Kinase (55-170) U/L CK-MB (CK-2) (<2.37) ng/mL CK-MB (CK-2) Rel Index (1.5-5.0) % Troponin I < 0.012 (0.01-0.034) ng/mL C-Reactive Protein (<1.0) mg/dL Total Protein (6.3-8.2) g/dL Albumin (3.5-5.0) g/dL Globulin (1.7-4.1) g/dL Albumin/Globulin Ratio (1.0-2.8) Lipase (23-300) U/L Imaging Data Chest x-ray: Radiologist's Impression: Close Chest X-Ray (Signed) Mitzi Smiley - 09/30/22 [place] [address] XRay Report Signed Patient: Kaushik Mcdonnell MR#: [id number] : 1960 Acct:[id number] Age/Sex: 62 / M Date of Service: 09/30/22 Loc: Accession Number: [id number] ?? Procedure: XR chest 1V Ordering Provider: Miguel Lopez D.O. PROCEDURE:? XR CHEST 1V ? INDICATIONS:? chest pain ? TECHNIQUE:? One view of the chest was acquired.? ? COMPARISON:? Located Within [facility], , XR CHEST 1V, 09/17/2018, 18:54. ? FINDINGS:? ? Surgical changes and devices:? None.? ? Lungs and pleura:? Lungs are clear.? No pleural effusions or pneumothorax.? ? Mediastinum:? Mediastinal contours appear normal.? Heart size is mildly enlarged. ? Bones and chest wall:? No suspicious bony lesions.? Overlying soft tissues appear unremarkable.? ? IMPRESSION:? No acute pulmonary process. ? ? Dictated by: Mitzi Smiley M.D. on 09/30/2022 at 23:51 ? ? Approved by: Mitzi Smiley M.D. on 09/30/2022 at 23:51 ? ECG Data Interpretation: [2248] EKG is normal sinus rhythm rate [99 ] and free of any signs of ischemia or ectopy. No ST segmental elevation or depression. No T wave inversions [0054] EKG is normal sinus rhythm rate [81 ] and free of any signs of ischemia or ectopy. No ST segmental elevation or depression. No T wave inversions MDM Narrative Medical decision making narrative: 62-year-old male nonsmoker with history of hypertension presents with brief episodes left-sided chest pain and elevated blood pressure in the absence of exertional symptoms or other cardiac equivalent Multiple etiologies for patient's symptoms considered including, but not limited to: [Cardiac ischemia, pulmonary embolism, musculoskeletal, pneumonia versus other] Prior Charts reviewed: Including prior emergency department visits from a few years ago Labs reviewed and interpreted by myself: No significant abnormalities noted. Most significantly 2 troponins by a few hours are negative. Additionally, D-dimer well below the cutoff to suggest pursuit of pulmonary embolism as diagnosis Imaging reviewed: No acute cardiopulmonary process Patient's symptoms improved over duration of stay with above-stated therapies. Findings and discharge diagnosis discussed with patient/family followed by verbalization of understanding Return precautions discussed with patient/family whom verbalize understanding of diagnosis and plan Discharge Plan Departure Patient Disposition: Home Clinical Impression: Chest pain, Hypertension Instructions: DI for Chest Pain Activity Restrictions/Additional Instructions: *You have been diagnosed with [atypical chest pain. As we discussed much of your history and physical exam as well as labs, EKGs and imaging are very reassuring. There is no evidence of heart attack, blood clot, inflammation around your heart, collapsed lung or other diagnosis which would require an immediate and specific intervention] *What to do: *Please start taking baby aspirin (81mg) daily and otherwise continue medications as previously prescribed *Please follow up with your primary care provider in 2-3 days, call for an appointment. Let them know you were seen in the Emergency Department and that we ask that you be seen in follow up. We will electronically transmit a record of today's note if your PCP is in our system *Return to Emergency Department if you should have any new, worsening or concerning symptoms, such as [fever greater than 101 F, shaking chills, worsening pain, persistent vomiting or other bothersome symptoms] Prescriptions: No Action lisinopril 20 mg tablet 20 mg PO DAILY Qty: 90 3RF Referrals: Ori Hicks MD [Primary Care Provider] - Visit Report Forms: Patient Portal/API
[2022-09-30 23:44] VITALS: BP 156/87; PULSE 88; RESP 20; O2SAT 96
[2022-10-01] VITALS (7 sets, daily range): BP systolic 150–171; BP diastolic 79–100; PULSE 74–85; RESP 17–21; O2SAT 94–96
[2022-10-01 02:06] LABS: C-Reactive Protein Quant < 0.5 mg/dL (<1.0)
[2022-10-01 02:07] LABS: D Dimer < 215 ng/ml (<500)
[2022-10-01 02:15] LABS: Erythrocyte Sedimentation Rate 4 MM/HR (0-15)
[2022-10-01 02:30] LABS: Troponin I < 0.012 ng/mL (0.01-0.034)
== END 2022-10-01 02:34 | disposition home or self-care (01) ==
PROVIDERS: Emergency Provider Emergency Medicine; PCP Family Medicine
DX: R07.9 Chest pain, unspecified (principal); I10 Essential (primary) hypertension
CPT/HCPCS: 36415; 71045; 80053; 82550; 82553; 83690; 83735; 84484; 85025; 85379; 85610; 85651; 85730; 86140; 93005; 99283; 99284

== ENCOUNTER → 2022-10-11 13:54 | Outpatient (CLI) | payer BC, SELFPAY ==
[2022-10-11 14:29] LABS: COVID19 -Nasal RAPID Negative (Negative)
[2022-10-11 15:27] LABS: Add Manual Diff / Slide Review NO; Basophils Absolute Auto 0 /uL (0-100); Basophils Percent Auto 0.4 % (0-2); Eosinophils Absolute Auto 100 /uL (0-450); Eosinophils Percent Auto 1.2 % (2-4); Hematocrit 42.5 % (41-53); Hemoglobin 14.6 g/dL (13.5-17.5); Lymphocytes Absolute Auto 1000 /uL (1100-4500); Mean Corpuscular HGB Conc 34.2 % (30-36); Mean Corpuscular Hemoglobin 32.7 PG (26-34); Mean Corpuscular Volume 95.5 fL (80-100); Monocytes Absolute Auto 600 /uL (0-900); Monocytes Percent Auto 10.5 % (3-14); Neutrophils Absolute Auto 3600 /uL (1500-7000); Neutrophils Percent Auto 68.9 % (50-75); Platelet Count 206 X10^3/uL (150-400); Red Blood Cell Count 4.45 X10^6/uL (4.5-5.9); Red Cell Distribution Width 12.6 % (11.6-14.8); White Blood Cell Count 5.3 X10^3/uL (4.5-11.0)
[2022-10-11 15:38] LABS: Cholesterol 226 mg/dL (140-199); HDL Cholesterol 58 mg/dL (40-60); LDL Cholesterol Calculated 130 mg/dL (<100); Triglycerides 190 mg/dL (35-150)
[2022-10-11 16:08] LABS: Prostate Specific Antigen Scrn 1.03 ng/mL (0.1-4.0)
== END ==
PROVIDERS: Emergency Medicine; PCP Family Medicine; Referring Provider Family Medicine; Visit Provider Family Medicine
DX: Z12.5 Encounter for screening for malignant neoplasm of prostate (principal); E78.2 Mixed hyperlipidemia; I10 Essential (primary) hypertension; Z20.822 Contact with and (suspected) exposure to COVID-19
CPT/HCPCS: 36415; 80061; 85025; 87635; C9803; G0103

== ENCOUNTER → 2022-10-14 07:41 | Outpatient (CLI) | payer BC, SELFPAY ==
--- NOTE | 2022-10-14 18:05 | DI.NM.S_ITS ---
DATE OF SERVICE: 10/14/2022 PROCEDURE: Exercise stress test. INDICATION: Chest pain. CARDIAC STRESS: Patient underwent exercise stress test under the supervision of an attending staff using standard Jay protocol. The patient walked on Jay protocol for 9 minutes and achieved 90 percent of target heart rate with maximum heart rate 141 beats per minute. Resting blood pressure 140/90 and peak blood pressure 202/102 mmHg, suggestive of hypertensive blood pressure response. Achieved 10.1 METs of workload. LIDA -9 percent. Baseline rhythm was sinus. During stress, no convincing ischemic changes seen. No significant arrhythmias. No chest pain. CONCLUSION: Exercise stress test is negative for inducible ischemia. Mildly hypertensive blood pressure response. No anginal symptoms. No ischemic electrocardiographic changes or significant arrhythmias. Overall, low-risk exercise stress test. Kaushik Mcdonnell - Joan/avery doc#: [id number]/job#: [id number] dd: 10/14/2022 16:59:00 dt: 10/14/2022 17:40:00 DICTATING /COPIES TO: Lesli Rodas MD COPIES MNE: TOBI;
== END ==
PROVIDERS: PCP Family Medicine; Referring Provider Family Medicine; Visit Provider Family Medicine
DX: R07.9 Chest pain, unspecified (principal)
CPT/HCPCS: 93017

== ENCOUNTER → 2023-10-01 12:45 | Outpatient (CLI) | payer BC, SELFPAY ==
[2023-10-01 14:05] LABS: Add Manual Diff / Slide Review NO; Basophils Absolute Auto 0 /uL (0-100); Basophils Percent Auto 0.4 % (0-2); Eosinophils Absolute Auto 100 /uL (0-450); Hematocrit 44.6 % (41-53); Hemoglobin 15.5 g/dL (13.5-17.5); Lymphocytes Absolute Auto 1400 /uL (1100-4500); Lymphocytes Percent Auto 21.9 % (25-40); Mean Corpuscular HGB Conc 34.7 % (30-36); Mean Corpuscular Hemoglobin 32.7 PG (26-34); Mean Corpuscular Volume 94.3 fL (80-100); Monocytes Absolute Auto 700 /uL (0-900); Monocytes Percent Auto 10.1 % (3-14); Neutrophils Absolute Auto 4300 /uL (1500-7000); Neutrophils Percent Auto 66.6 % (50-75); Platelet Count 253 X10^3/uL (150-400); Red Blood Cell Count 4.73 X10^6/uL (4.5-5.9); Red Cell Distribution Width 12.4 % (11.6-14.8); White Blood Cell Count 6.4 X10^3/uL (4.5-11.0)
[2023-10-01 14:12] LABS: Hemoglobin A1C% w Est Avg Glu 5.5 % (4.0-6.0)
[2023-10-01 14:21] LABS: Alanine Aminotransferase 85 IU/L (<50); Albumin 4.6 g/dL (3.5-5.0); Albumin Globulin Ratio 1.5 (1.0-2.8); Alkaline Phosphatase 62 U/L (38-126); Aspartate Aminotransferase 45 IU/L (17-59); BUN Creatinine Ratio 22.9 (6-22); Blood Urea Nitrogen 19 mg/dL (9-20); Calcium 9.9 mg/dL (8.4-10.2); Carbon Dioxide 24 mmol/L (22-32); Chloride 101 mmol/L (98-107); Cholesterol 221 mg/dL (140-199); Estimated Glomerular Filt Rate > 60 mL/min (>60); Glucose 108 mg/dL (80-110); HDL Cholesterol 67 mg/dL (40-60); HEMOLYSIS < 15 (0-50); LDL Cholesterol Calculated 124 mg/dL (<100); Potassium 3.9 mmol/L (3.4-5.1); Sodium 134 mmol/L (137-145); Total Protein 7.6 g/dL (6.3-8.2); Triglycerides 148 mg/dL (35-150)
[2023-10-01 16:51] LABS: Creatinine Urine Random 53.6 mg/dL
[2023-10-01 16:55] LABS: Microalbumi Creatinin Ratio Ur 46.6 ug/mg CR (<30); Microalbumin Urine Random 2.5 mg/dL (0-1.6)
[2023-10-02 17:07] LABS: Hep C Virus Ab w/Reflex Quant NEGATIVE s/c (NEGATIVE)
== END ==
PROVIDERS: PCP Family Medicine; Referring Provider Family Medicine; Visit Provider Family Medicine
DX: E78.2 Mixed hyperlipidemia (principal); I10 Essential (primary) hypertension; R73.9 Hyperglycemia, unspecified
CPT/HCPCS: 36415; 80053; 80061; 82043; 82570; 83036; 85025; 86803

== ENCOUNTER 2024-01-11 07:59 | Emergency (ER) | payer BC, SELFPAY ==
[2024-01-11 08:07] VITALS: BP 146/91; PULSE 101; RESP 16; TEMP 36.7; O2SAT 97; BMI 30.1
--- NOTE | 2024-01-11 08:13 | ED_ITS ---
HPI - Wound/Laceration General Chief Complaint: Wound/Laceration Stated Complaint: infection of index finger Time Seen by Provider: 01/11/24 08:02 Source: patient, family, RN notes reviewed and old records reviewed Mode of arrival: Ambulatory Limitations: no limitations History of Present Illness HPI narrative: 63-year-old male with history of hypertension presents with complaint of a wound on his right hand. Patient states more than a week ago he was walking his dog when it pulled the leash long his hand and caused a cut on the underside of the 2nd digit. Patient states he had some abrasions on his other hand as well and opposite finger. Patient states it started to get infected he ignored it for awhile in the wound. On the other side of the finger as well. States there was also tracking red up his arm. He was started on oral antibiotic last Friday and took it for 4-5 days, he left his prescription and [place]. He does not know the name of the antibiotic but states that the redness improved the wound was healing and getting smaller. He states he thought it was doing well enough and did not follow-up. Patient states it started to look more infected over the last 2 days. His significant other gave him some topical mupirocin which was helpful. We called her and he has reportedly been on cephalexin. Patient states no fevers. He states redness is just around the site. There has been a scant amount of purulent drainage by his description. He states his tetanus is up-to-date. He states no pain on the finger into the hand which he had before. No numbness tingling or weakness. He has had good range of motion. Patient states he takes medication for blood pressure, denies any diabetes. Denies any drug allergies. Tobacco, drinks 3 alcoholic drinks every other day, no recreati onal drugs. Dr. Hicks is his primary care physician. Related Data Home Medications Medication Instructions Recorded Confirmed aspirin 81 mg tablet,delayed 81 mg PO DAILY 10/02/22 10/03/23 release (Adult Aspirin Regimen) Previous Rx's Medication Instructions Recorded fluticasone propionate 50 1 spray intranasal DAILY allergies 07/14/23 mcg/actuation nasal #16 grams spray,suspension (Flonase Allergy Relief) famotidine 20 mg tablet 20 mg PO DAILY #30 tabs 08/11/23 losartan 100 1 tab PO DAILY #90 tabs 10/03/23 mg-hydrochlorothiazide 12.5 mg tablet rosuvastatin 10 mg tablet 10 mg PO DAILY #90 tabs 10/03/23 cephalexin 500 mg capsule 500 mg PO QID 7 days #28 caps 01/11/24 mupirocin 2 % topical ointment 1 applic topical BID 7 days #22 01/11/24 grams Allergies Allergy/AdvReac Type Severity Reaction Status Date / Time No Known Drug Allergies Allergy Verified 10/03/23 15:15 Review of Systems Review of Systems ROS Unobtainable: All systems reviewed & are unremarkable except as noted in HPI and below Patient History Medical History Hyperglycemia Wears glasses GERD (gastroesophageal reflux disease) Hyperlipemia Hypertension Surgical History Anesthesia History of hernia surgery (~2003) No pertinent past surgical history Family History Father Alzheimer disease History of heart disease Hyperlipidemia Mental health problem COVID-19 Mother Stroke Social History Smoking Status: Never smoker Smoking Status: Never smoker alcohol intake frequency: 3 or more drinks per day Substance Use Type: does not use Exam Narrative Exam Narrative: GENERAL: Alert and oriented x three, male in mild distress. HEENT: Head normocephalic, atraumatic, EOMI, pupils reactive, face symmetric, moist mucous membranes NECK: Supple, full range of motion CARDIOVASCULAR: Regular rate and rhythm without murmurs, rubs or gallops. RESPIRATORY: Breath sounds equal bilaterally, no wheezes rales or rhonchi. ABDOMEN: Soft, nontender. Normoactive bowel sounds all 4 quadrants. No guarding or rebound, rigidity, no mass EXTREMITIES: Normal range of motion, no clubbing or edema. Neurovascularly intact. Cap refill less than 2 seconds in all 5 fingers. 2+ radial pulse. And patient's right hand there is a healing abrasions/laceration on the palmar side of the 2nd digit at the MCP, there has also an abrasion on the PIP which appears healing. On the dorsum of the hand between the 2nd and 3rd finger of the webbing there is a wound approximately a cm in size, 0.5 cm of erythema surrounding. There is granulation tissue with some scab and no active drainage but area does not appear to be healing. Only barely mildly tender to palpation. Patient has full range of motion, no swelling of the fingers, hands or arm. No redness tracking elsewhere. No fluctuation or induration noted. NEUROLOGICAL: Cranial nerves II through XII grossly intact. Moving all extremities SKIN: Warm, dry, no petechiae, no rashes or lesions other than noted. Initial Vital Signs Initial Vital Signs: Vital Signs Temperature 98.1 F 01/11/24 08:07 Pulse Rate 101 H 01/11/24 08:07 Respiratory Rate 16 01/11/24 08:07 Blood Pressure 146/91 H 01/11/24 08:07 Pulse Oximetry 97 01/11/24 08:07 Oxygen Delivery Method Room Air 01/11/24 08:07 Course Orders Ordered: ED Orders 01/11/24 08:12 Wound Culture and Gram Stain Stat Discontinued Medications Cephalexin HCl (Cephalexin 250 Mg Capsule) 500 mg PO NOW ONE Stop: 01/11/24 08:13 Last Admin: 01/11/24 08:17 Dose: 500 mg Vital Signs Vital signs: Vital Signs - 8 hr 01/11/24 08:07 Temperature 98.1 F Pulse Rate 101 H Respiratory Rate 16 Blood Pressure 146/91 H Pulse Oximetry 97 Oxygen Delivery Method Room Air MDM - Wound/Laceration MDM Narrative Medical decision making narrative: 63-year-old male with recent injury to his hand had developed an infection which sounds like was tracking up his arm with cellulitis and a wound palmar side as well as dorsum. Patient states had been improving on cephalexin he took a proximally 4-5 days total but left the prescription in [place] and has not had any since last , 3 days ago. Patient states infection seems to be reoccurring. He did have some topical mupirocin on it yesterday which seemed to be somewhat helpful. Patient's tetanus is up-to-date. On exam patient has a wound on the dorsum of his hand the palmar side overall appears to be healing. On examination does not appear to have a deep space infection. Patient would likely benefit from refill cephalexin, we will continue with mupirocin topically. Discussed with patient he does need to follow up if not healing over the next week. If he is having any worsening symptoms needs to come back to the ER. First dose given here in the emergency department. Wound was washed and bandaged here in the department. Discharge Plan Departure Patient Disposition: Home Clinical Impression: Infection of hand Instructions: DI for Wound Infection Activity Restrictions/Additional Instructions: Follow-up in the next 5 days for recheck of your wound. Take oral antibiotics until completed. Your next dose is due this afternoon. Use topical triple antibiotic ointment to the open areas, place this twice daily. Prescription sent to [facility] Wound Care: Keep wound(s) clean and dry. Wash daily with soap and water only, pat dry. Cover the wound with an antibiotic. Do not use over the counter products (alcohol or peroxide)on the wounds unless instructed by a physician. If wound condition worsens (increased/expanding redness, developing fluid blisters, or worsening pain), either contact your doctor for an urgent re- assessment , or return to the Emergency Department. Please return to the ER if you are having fevers, increasing redness, swelling or drainage, increasing pain, if the wound is getting larger or new wounds appear Prescriptions: New cephalexin 500 mg capsule 500 mg PO QID 7 Days Qty: 28 0RF mupirocin 2 % ointment 1 applic topical BID 7 Days Qty: 22 0RF No Action fluticasone propionate [Flonase Allergy Relief] 50 mcg/actuation spray,suspension 1 spray intranasal DAILY Qty: 16 2RF Rx Instructions: administer into each nostril famotidine 20 mg tablet 20 mg PO DAILY Qty: 30 1RF losartan-hydrochlorothiazide 100-12.5 mg tablet 1 tab PO DAILY Qty: 90 2RF rosuvastatin 10 mg tablet 10 mg PO DAILY Qty: 90 2RF aspirin [Adult Aspirin Regimen] 81 mg tablet,delayed release (DR/EC) 81 mg PO DAILY Referrals: Ori Hicks MD [Primary Care Provider] - Stand Alone Forms: Patient Portal/API
[2024-01-11] MEDS: cephALEXin 250 MG CAPSULE 500 MG PO (08:17)
--- NOTE | 2024-01-11 08:20 | PC.NURSE ---
bandaid reapplied to wound. no acute distress.
== END 2024-01-11 08:21 | disposition home or self-care (01) ==
PROVIDERS: Emergency Provider Emergency Medicine; PCP Family Medicine
DX: L08.9 Local infection of the skin and subcutaneous tissue, unspecified (principal)
CPT/HCPCS: 87070; 87075; 87205; 99283

== ENCOUNTER → 2024-10-05 11:34 | Outpatient (CLI) | payer BC, SELFPAY ==
[2024-10-05 12:35] LABS: Add Manual Diff / Slide Review NO; Basophils Absolute Auto 0 /uL (0-100); Basophils Percent Auto 0.4 % (0-2); Eosinophils Absolute Auto 0 /uL (0-450); Eosinophils Percent Auto 0.1 % (2-4); Hematocrit 40.8 % (41-53); Hemoglobin 14.1 g/dL (13.5-17.5); Lymphocytes Absolute Auto 400 /uL (1100-4500); Lymphocytes Percent Auto 12.5 % (25-40); Mean Corpuscular HGB Conc 34.6 % (30-36); Mean Corpuscular Hemoglobin 34.2 PG (26-34); Monocytes Absolute Auto 600 /uL (0-900); Monocytes Percent Auto 18.8 % (3-14); Neutrophils Absolute Auto 2300 /uL (1500-7000); Neutrophils Percent Auto 68.2 % (50-75); Platelet Count 173 X10^3/uL (150-400); Red Blood Cell Count 4.12 X10^6/uL (4.5-5.9); Red Cell Distribution Width 12.4 % (11.6-14.8); White Blood Cell Count 3.4 X10^3/uL (4.5-11.0)
[2024-10-05 12:57] LABS: Alanine Aminotransferase 61 IU/L (<50); Albumin 4.4 g/dL (3.5-5.0); Albumin Globulin Ratio 1.8 (1.0-2.8); Alkaline Phosphatase 55 U/L (38-126); Aspartate Aminotransferase 45 IU/L (17-59); BUN Creatinine Ratio 14.1 (6-22); Bilirubin Total 0.6 mg/dL (0.2-1.3); Blood Urea Nitrogen 11 mg/dL (9-20); Calcium 9.3 mg/dL (8.4-10.2); Carbon Dioxide 24 mmol/L (22-32); Chloride 99 mmol/L (98-107); Cholesterol 161 mg/dL (140-199); Estimated Glomerular Filt Rate > 60 mL/min (>60); Globulin 2.5 g/dL (1.7-4.1); Glucose 108 mg/dL (80-110); HDL Cholesterol 104 mg/dL (40-60); HEMOLYSIS < 15 (0-50); LDL Cholesterol Calculated 47 mg/dL (<100); Potassium 3.9 mmol/L (3.4-5.1); Sodium 133 mmol/L (137-145); Total Protein 6.9 g/dL (6.3-8.2); Triglycerides 52 mg/dL (35-150)
[2024-10-05 13:27] LABS: Prostate Specific Antigen Scrn 1.28 ng/mL (0.1-4.0)
[2024-10-05 14:21] LABS: Creatinine Urine Random 100.78 mg/dL
[2024-10-06 04:36] LABS: Apolipoprotein B 62 mg/dL (<90)
== END ==
PROVIDERS: PCP Family Medicine; Referring Provider Family Medicine; Visit Provider Family Medicine
DX: Z12.5 Encounter for screening for malignant neoplasm of prostate (principal); R73.9 Hyperglycemia, unspecified; E78.5 Hyperlipidemia, unspecified; I10 Essential (primary) hypertension; K21.9 Gastro-esophageal reflux disease without esophagitis
CPT/HCPCS: 36415; 80053; 80061; 82043; 82172; 82570; 85025; G0103

== ENCOUNTER → 2024-12-10 13:56 | Outpatient (CLI) | payer BC, SELFPAY ==
[2024-12-10 14:56] LABS: Add Manual Diff / Slide Review NO; Basophils Absolute Auto 0 /uL (0-100); Basophils Percent Auto 0.2 % (0-2); Eosinophils Absolute Auto 0 /uL (0-450); Eosinophils Percent Auto 0.1 % (2-4); Hematocrit 42.1 % (41-53); Hemoglobin 14.7 g/dL (13.5-17.5); Lymphocytes Absolute Auto 800 /uL (1100-4500); Lymphocytes Percent Auto 10.4 % (25-40); Mean Corpuscular HGB Conc 34.8 % (30-36); Mean Corpuscular Hemoglobin 34.4 PG (26-34); Mean Corpuscular Volume 98.7 fL (80-100); Monocytes Absolute Auto 800 /uL (0-900); Monocytes Percent Auto 10.1 % (3-14); Neutrophils Absolute Auto 5900 /uL (1500-7000); Neutrophils Percent Auto 79.2 % (50-75); Platelet Count 246 X10^3/uL (150-400); Red Blood Cell Count 4.27 X10^6/uL (4.5-5.9); Red Cell Distribution Width 12.5 % (11.6-14.8); White Blood Cell Count 7.5 X10^3/uL (4.5-11.0)
== END ==
PROVIDERS: PCP Family Medicine; Referring Provider Family Medicine; Visit Provider Family Medicine
DX: D72.819 Decreased white blood cell count, unspecified (principal)
CPT/HCPCS: 36415; 85025